=== PATIENT | female | born 1970 | race Caucasian/White ===

== ENCOUNTER → 2020-09-08 | Outpatient (CLI) | payer BC ==
--- NOTE | 2020-09-08 09:39 | RAD ---
HIP RIGHT 2V WITH PELVIS DATE: 09/08/2020 12:00 AM INDICATION: Reason: Right acute hip and pelvic pain, no recent trauma / Spl. Instructions: / History: COMPARISON: None. FINDINGS: Bones: There is no evidence of acute fracture or dislocation. Joints: Severe degenerative changes of the right hip with complete loss of joint space, subchondral cystic change, and subchondral sclerosis. Mild degenerative changes of the left hip and symphysis pubis. Miscellaneous: None. IMPRESSION: No acute osseous abnormality. Severe right hip osteoarthritis. Electronically signed by: Babak Bang MD (09/08/2020 9:36 AM) [id number]
== END ==
LOC: PMG 08:48
PROVIDERS: ATTEND Physician Assistant Medical
DX: M16.11 Unilateral primary osteoarthritis, right hip (principal)
CPT/HCPCS: 73502